=== PATIENT | male | born 1980 | race Caucasian/White ===

== ENCOUNTER 2018-03-04 12:35 | Emergency (ER) | payer OTHER, SELFPAY ==
[2018-03-04] VITALS (11 sets, daily range): BP systolic 125–153; BP diastolic 82–106; PULSE 79–127; RESP 12–20; TEMP 36.3–36.6; O2SAT 95–99; BMI 20.5
--- NOTE | 2018-03-04 12:59 | ED.RN ---
Addendum entered by Brandi Villa 03/04/18 13:00: PHONE NUMBER [phone] Original Note: DR MATTHEWS LUNG CA MD
--- NOTE | 2018-03-04 13:08 | CT_ITS ---
STUDY: CT BRAIN WITHOUT CONTRAST REASON FOR EXAM: Male, 37 years old. Headache, history of lung cancer RADIATION DOSAGE (If Supplied By Facility): CTDIvol = ( 44.99 ) mGy, DLP = ( 829.85 ) mGycm TECHNIQUE: Transaxial CT imaging of the brain was performed without administration of intravenous contrast material. Individualized dose optimization techniques were used for this CT. COMPARISON: None. FINDINGS: Normal soft tissue structures. Normal calvarium. There is a large complex mass in the right parietal region with associated edema, mass effect and [id number] midline shift by approximately 1.4 cm. There is a concern of subfalcine herniation due to the edema and midline shift and there is effacement of the left half of the basilar cisterns. There is no acute hemorrhage. This is likely due to a large metastatic lesion. CT/Brain/Head without Contrast IMPRESSION: Large complex likely metastatic lesion in the right parietal lobe measuring approximately 6.1 x 4.4 x 5.1 cm. There is significant edema, localized mass effect and [id number] midline shift by 1.4 cm. The coronal recon images show a concern of subfalcine herniation due to the edema and midline shift. Effacement of the left basilar cisterns No acute hemorrhage N.B. : The above information has been verbally conveyed by Antonio Hartley MD to Yvon Bronson MD, on 03/04/2018 14:57:31 (ET). Electronically Signed: Antonio Hartley MD at 14:50 EST , Service support ,
--- NOTE | 2018-03-04 13:08 | EKG12_ITS ---
Test Reason : HEADACHE Blood Pressure : / mmHG Vent. Rate : 117 BPM Atrial Rate : 117 BPM P-R Int : 160 ms QRS Dur : 092 ms QT Int : 340 ms P-R-T Axes : 073 -30 069 degrees QTc Int : 474 ms Sinus tachycardia Left axis deviation Low voltage QRS (limb leads) Septal PR, age undetermined, cannot be excluded Abnormal ECG Confirmed by LIGIA MOHAN, FAN ([id number]), editorial manager JG CUNNINGHAM ([id number]) on 03/08/2018 1:17:53 PM Referred By: MARCY Confirmed By:FAN STRONG MD
[2018-03-04 13:18] LABS: Absolute Lymphocyte Count 1.57 X10^3/ul (0.83-4.51); Absolute Neutrophil Count 9.9 X10^3/uL (2.0-7.7); Basophil# 0.06 X10^3/uL; Basophil% 0.5 % (0-1); Eosinophil# 0.04 X10^3/uL; Eosinophils% 0.3 % (0-5); Hematocrit 43.7 % (40-54); Hemoglobin 15.6 g/dl (13.0-16.5); Lymphocyte # 1.57 X10^3/ul (4.0); Lymphocyte % 12.6 % (19-41); Mean Corp Hgb Conc 35.7 g/gl (32-36); Mean Corpuscular Volume 86.7 fL (80-94); Mean Platelet Vol. 9.7 fl (6.2-12.0); Monocyte# 0.88 X10^3/uL; Monocyte% 7.1 % (0-10); Neutrophil % 79.3 % (47-70); Platelet Count 275 K/mm3 (150-450); RBC Distribution Width CV 13.5 % (11.6-14.6); RBC Distribution Width SD 42.8 fl (35.1-43.9); Red Blood Count 5.04 M/mm3 (4.6-6.2); White Blood Count 12.5 K/mm3 (4.4-11.0)
[2018-03-04 13:21] LABS: Partial Thromboplast Time 33.5 Seconds (24.1-36.2)
[2018-03-04 13:26] LABS: POSITIVE COUNT NO; POSITIVE DIFFERENTIAL NO; POSITIVE MORPHOLOGY NO
[2018-03-04] MEDS: fentaNYL 100 MCG/2 ML Ampul 50 MCG IV ×2 (13:32→14:15)
[2018-03-04] MEDS: 0.9% Normal Saline 1,000 ML 1000 ML IV (13:34)
[2018-03-04 13:35] LABS: ALB/GLOB Ratio 0.9 RATIO (0.9-2.4); AST(SGOT) 29 U/L (15-37); Alanine Aminotransfer ALT/SGPT 33 U/L (16-61); Alkaline Phosphatase 77 U/L (45-117); Anion Gap 10 (5-15); BUN 11 mg/dL (7-18); BUN/Creat Ratio 11.8 RATIO (10-20); Calcium,Total 9.2 mg/dL (8.5-10.1); Chloride 104 mmol/L (98-107); Creatinine, Serum 0.94 mg/dL (0.70-1.30); EST Glomerular Filtration Rate 96 mL/min (>60); Est Glom Filt Rate - Afr Amer 116 mL/min (>60); Estimated Creatinine Clearance 109.38 ml/min; Globulin 4.3 g/dL (2.2-4.2); Glucose 80 mg/dL (74-106); Potassium 3.6 mmol/L (3.5-5.1); Protein, Total 8.3 g/dL (6.4-8.2); Sodium Level 136 mmol/L (136-145)
--- NOTE | 2018-03-04 14:28 | RAD_ITS ---
STUDY: X-RAY CHEST REASON FOR EXAM: Male, 37 years old. Weakness, headache, lung cancer. TECHNIQUE: Portable upright chest COMPARISON: 09/05/2015 CT neck soft tissues. FINDINGS: There is widening of the right superior mediastinum. The patient had a mass in this location on prior CT imaging of 09/05/2015. There is no cardiomegaly or aortomegaly. The lungs are symmetric and clear. No acute osseous or upper abdominal process. RAD/Chest 1 View (Portable) IMPRESSION: Widening of the right superior mediastinum may be associated with the mediastinal mass seen on prior CT imaging of 2015. Electronically Signed: Taras Singh MD at 16:01 EST Tel , Service support ,
[2018-03-04] MEDS: Ondansetron 4 MG/2 ML Vial IV (14:45)
--- NOTE | 2018-03-04 14:52 | NURSING ---
DR ARDEN VDIAL
--- NOTE | 2018-03-04 14:59 | ED.RN ---
PT VOMITING, NOTIFIED, MEDICATED WITH ZOFRAN, BED SHEETS AND GOWN CHANGED, CLEANED WITH BATH WIPES, WARM BLANKETS GIVEN. PT REMAINS DROWSY, DOES NOT ALWAYS FOLLOW COMMANDS, REPEATS QUESTIONS. RESTING QUIETLY IN BED AT THIS TIME, NO SIGNS OF DISTRESS. UNCLE REMAINS AT BEDSIDE.
--- NOTE | 2018-03-04 15:14 | ED.RN ---
PER MD, NO URINE OR SECOND SET BLOOD CULTURES NEED COLLECTED
--- NOTE | 2018-03-04 15:21 | NURSING ---
DR XAVI VIDAL
--- NOTE | 2018-03-04 15:27 | ED.VISSUMM ---
- ER Visit Summary Date of Service: 03/04/18 Chief Complaint: Head ache History of Present Illness: The patient is a 37 M with a headache for about 10-12 days. He has a history of lung cancer and is currently in a trial, taking Sitravatinib under the care of Dr. Ruffin. He never had headaches before. Denies fevers. Denies any focal neurologic symptoms like weakness or numbness. He was scheduled for an outpatient MRI but came into the ED today because he was just too weak and his head hurt severely. He also had some nausea and vomiting. Physical Examination: Afebrile and vital signs unremarkable except for heart rate of 127. Head and neck atraumatic. Neck shows good range of motion. No meningeal findings. Cranial nerves grossly intact. Heart regular. Lungs clear. Abdomen soft. Sternum is nontender with no edema. Moves all extremities. No focal weakness or numbness. Test Results: EKG showed sinus rhythm at a rate of 117. White count 12.5. Otherwise labs and coags unremarkable. Lactate normal. Chest x-ray pending. Urinalysis pending. CT brain showed a right parietal metastatic lesion with vasogenic edema, measuring just over 6 cm in maximum diameter. He also has a 1.4 cm midline shift. Emergency Department Course and Treatment: Patient was initially treated with fluids and fentanyl. CT was abnormal and I treated the patient with Decadron. I did page [facility] and spoke with Dr. Genao from neurosurgery. He also advised Decadron. 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 I spoke with Dr. Luu who will admit to oncology. Patient is transferred for further care. Treatment Plan: As above Disposition: Transfer Impression: 1. Lung cancer 2. Right parietal brain metastasis This note was generated with [employer] dictation software. It may contain incorrect words, spelling, and punctuation that were not noted in review of the chart prior to signing ED Disposition - Plan for ED Patient: Chief Complaint: Headache Referrals: Timothy Castle MD [Primary Care Provider] -
--- NOTE | 2018-03-04 15:30 | ED.DCSUM_ITS ---
- ER Visit Summary Date of Service: 03/04/18 Chief Complaint: Head ache History of Present Illness: The patient is a 37 M with a headache for about 10- 12 days. He has a history of lung cancer and is currently in a trial, taking Sitravatinib under the care of Dr. Ruffin. He never had headaches before. Den ies fevers. Denies any focal neurologic symptoms like weakness or numbness. He was scheduled for an outpatient MRI but came into the ED today because he was just too weak and his head hurt severely. He also had some nausea and vomiting. Physical Examination: Afebrile and vital signs unremarkable except for heart rate of 127. Head and neck atraumatic. Neck shows good range of motion. No meningeal findings. Cranial nerves grossly intact. Heart regular. Lungs clear. Abdomen soft. Sternum is nontender with no edema. Moves all extremities. No focal weakness or numbness. Test Results: EKG showed sinus rhythm at a rate of 117. White count 12.5. Otherwise labs and coags unremarkable. Lactate normal. Chest x-ray pending. Urinalysis pending. CT brain showed a right parietal metastatic lesion with vasogenic edema, measuring just over 6 cm in maximum diameter. He also has a 1.4 cm midline shift. Emergency Department Course and Treatment: Patient was initially treated with fluids and fentanyl. CT was abnormal and I treated the patient with Decadron. I did page [facility] and spoke with Dr. Genao from neurosurgery. He also advised Decadron. 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 I spoke with Dr. Luu who will admit to oncology. Patient is transferred for further care. Treatment Plan: As above Disposition: Transfer Impression: 1. Lung cancer 2. Right parietal brain metastasis This note was generated with [employer] dictation software. It may contain incorrect words, spelling, and punctuation that were not noted in review of the chart prior to signing ED Disposition - Plan for ED Patient: Chief Complaint: Headache Referrals: Timothy Castle MD [Primary Care Provider] -
--- NOTE | 2018-03-04 15:35 | NURSING ---
ACCEPTED BY DR HURLEY
--- NOTE | 2018-03-04 17:10 | NURSING ---
CALLED [facility], TALKED TO AILYN. NO BED YET
--- NOTE | 2018-03-04 17:57 | NURSING ---
GAVE CURRENT VITALS TO [facility]IRK , TRANSFER LINE AT
--- NOTE | 2018-03-04 18:05 | NURSING ---
[facility] 4 ROOM 12, BED A REPORT [phone]
--- NOTE | 2018-03-04 18:17 | NURSING ---
CALLED [facility]
== END 2018-03-04 18:51 | disposition short-term general hospital (02) ==
PROVIDERS: Emergency Provider Emergency Medicine; Family Provider Family Medicine; PCP Family Medicine
DX: C34.90 Malignant neoplasm of unspecified part of unspecified bronchus or lung (principal); C79.31 Secondary malignant neoplasm of brain; I10 Essential (primary) hypertension; K21.9 Gastro-esophageal reflux disease without esophagitis; Z79.899 Other long term (current) drug therapy; Z72.0 Tobacco use
CPT/HCPCS: 70450; 71045; 80053; 83605; 85025; 85610; 85730; 87040; 93005; 96361; 96374; 96375; 96376; 99285; J7030; A4216; J2405